=== PATIENT | male | born 2000 | race Caucasian/White ===

== ENCOUNTER 2020-09-02 13:45 | Emergency (ER) | payer SELFPAY ==
[~2020-09-02] VITALS: Ht 182.9 cm; Wt 113.4 kg
[2020-09-02 15:40] LABS: BILIRUBIN,URINE NEGATIVE (NEGATIVE); CLARITY,URINE CLEAR; COLOR,URINE YELLOW; GLUCOSE, URINE (UA) NEGATIVE (NEGATIVE); KETONES,URINE NEGATIVE (NEGATIVE); LEUKOCYTE ESTERASE ,URINE NEGATIVE (NEGATIVE); NITRITE,URINE NEGATIVE (NEGATIVE); PROTEIN,URINE NEGATIVE (NEGATIVE)
[2020-09-02 15:46] LABS: BACTERIA,URINE NEGATIVE /HPF
[2020-09-02 15:50] LABS: BASOPHILS % (AUTO) 1 % (0-10); EOSINOPHILS % (AUTO) 0 % (0-10); HEMATOCRIT 48 % (40-54); HEMOGLOBIN 17.6 g/dL (13.3-17.7); LYMPHOCYTES # (AUTO) 1.3 10^3/uL (1.0-4.0); LYMPHOCYTES % (AUTO) 25 % (12-44); MEAN CORPUSCULAR HEMOGLOBIN 35 pg (25-34); MEAN CORPUSCULAR HGB CONC 37 g/dL (32-36); MEAN CORPUSCULAR VOLUME 94 fL (80-99); MEAN PLATELET VOLUME 11.3 fL (9.0-12.2); MONOCYTES # (AUTO) 0.5 10^3/uL (0.0-1.0); MONOCYTES % (AUTO) 10 % (0-12); NEUTROPHILS # (AUTO) 3.4 10^3/uL (1.8-7.8); NEUTROPHILS % (AUTO) 64 % (42-75); PLATELET COUNT 154 10^3/uL (130-400); WHITE BLOOD COUNT 5.2 10^3/uL (4.3-11.0)
[2020-09-02 15:57] LABS: AMPHETAMINE SCREEN, URINE NEGATIVE (NEGATIVE); BARBITURATE SCREEN URINE NEGATIVE (NEGATIVE); BENZODIAZEPINES SCREEN URINE NEGATIVE (NEGATIVE); CANNABINOID SCREEN, URINE NEGATIVE (NEGATIVE); COCAINE SCREEN URINE NEGATIVE (NEGATIVE); METHADONE STAT NEGATIVE (NEGATIVE); METHAMPHETAMINE SCREEN URINE S NEGATIVE (NEGATIVE); OPIATE SCREEN URINE NEGATIVE (NEGATIVE); OXYCODONE STAT NEGATIVE (NEGATIVE); PROPOXYPHENE STAT NEGATIVE (NEGATIVE); TRICYCLIC ANTIDEPRESSANTS SCRE NEGATIVE (NEGATIVE)
[2020-09-02 16:05] LABS: ALBUMIN 3.9 GM/DL (3.2-4.5); CHLORIDE 99 MMOL/L (98-107); POTASSIUM 4.5 MMOL/L (3.6-5.0); SODIUM 136 MMOL/L (135-145)
[2020-09-02 16:06] LABS: CALCIUM 9.8 MG/DL (8.5-10.1)
[2020-09-02 16:07] LABS: GLUCOSE 127 MG/DL (70-105)
[2020-09-02 16:08] LABS: TOTAL PROTEIN 8.9 GM/DL (6.4-8.2)
--- NOTE | 2020-09-02 16:08 | ED General ---
General Chief Complaint: General Problems/Pain Stated Complaint: HEAD PRESSURE Nursing Triage Note: PT AMBULATORY TO TRIAGE ROOM WITH C/O DIZZINESS/COLD CHILLS/DIARRHEA/DECREASED APPETITE/FATIGUE/WEAKNESS/CONGESTION X5 DAYS. PT WAS EVALUATED AT [facility] YESTERDAY WHERE HE WAS SWABBED FOR COVID/FLU/STREP AND ALL WERE NEGATIVE. [facility] INFORMED HIM THAT HE HAS VIRAL SYNDROME AND TO INCREASE FLUID INTAKE. PT STATES HE'S AN ALCOHOLIC AND HAS EXPERIENCED W/D SYMPTOMS BEFORE. HE THOUGHT HE MIGHT BE GOING THROUGH W/D SO HE CONSUMED WINE IT ADMINISTRATIVE ASSISTANT IN ATTEMPT TO RELIEVE HIS SYMPTOMS. Nursing Sepsis Screen: No Definite Risk History of Present Illness Date Seen by Provider: Sep 02, 2020 Time Seen by Provider: 14:00 Initial Comments 19-year-old male reports with a myriad of symptoms related to a viral upper respiratory infection. He is also concerned because over the last year he began drinking alcohol, it is now several days a week and he is consuming larger amounts. He is wanting to discontinue drinking alcohol and has slowly cut back. He is open to seeing behavioral health at [facility] and joining . He [facility] 1 [facility] but he was reluctant to do that he is now reconsidering, however he started a new job and is on orientation. Timing/Duration: 2-3 Days Associated Systoms: Denies Symptoms Allergies and Home Medications Home Medications Hydroxyzine Pamoate 25 Mg Capsule, 25 MG PO Q8H Prescribed by: CR BELL on 09/02/20 1612 Patient Home Medication List Home Medication List Reviewed: Yes Review of Systems Review of Systems Constitutional: no symptoms reported, see HPI EENTM: see HPI, nose congestion Respiratory: see HPI, cough Gastrointestinal: no symptoms reported, see HPI All Other Systems Reviewed Negative Unless Noted: Yes Past Xjjpjim-Guqhlw-Axpzsu Hx Past Med/Social Hx: Reviewed Nursing Past Med/Soc Hx Patient Social History Alcohol Use: Regular Use Number of Drinks Today: 2 Alcohol Beverage of Choice: Other Smoking Status: Current Everyday Smoker Type Used: Electronic/Vapor Recent Infectious Disease Expo: No Recent Hopitalizations: No Seasonal Allergies Seasonal Allergies: No Past Medical History Surgeries: No Respiratory: No Cardiac: No Neurological: No Genitourinary: No Gastrointestinal: No Musculoskeletal: No Endocrine: No HEENT: No Cancer: No Psychosocial: Yes (ALCOHOLISM) Integumentary: No Physical Exam Vital Signs Vital Signs - First Documented 09/02/20 13:56 Temp 36.1 Pulse 100 Resp 18 B/P (MAP) 157/93 (114) Pulse Ox 98 O2 Delivery Room Air Capillary Refill : Less Than 3 Seconds Height, Weight, BMI Height: '" Weight: lbs. oz. kg; 33.00 BMI Method: General Appearance: No Apparent Distress, WD/WN Eyes: Bilateral Eye Normal Inspection, Bilateral Eye PERRL, Bilateral Eye EOMI HEENT: PERRL/EOMI, TMs Normal, Pharynx Normal, Moist Mucous Membranes; No Tonsillar Exudate, No Tonsillar Enlargement; Other (Purulent nasal drainage) Neck: Full Range of Motion, Normal Inspection, Non Tender, Supple Respiratory: Chest Non Tender, Lungs Clear, Normal Breath Sounds Cardiovascular: Regular Rate, Rhythm, No Murmur, Normal Peripheral Pulses Gastrointestinal: Normal Bowel Sounds, Non Tender, Soft Extremity: Normal Capillary Refill, Normal Inspection, Normal Range of Motion, Non Tender, No Calf Tenderness, No Pedal Edema Neurologic/Psychiatric: Alert, Oriented x3, No Motor/Sensory Deficits, Normal Mood/Affect Skin: Normal Color, Warm/Dry Progress/Results/Core Measures Suspected Sepsis Recent Fever Within 48 Hours: No Infection Criteria Present: None New/Unexplained Altered Menta: No Sepsis Screen: No Definite Risk SIRS Temperature: Pulse: 100 Respiratory Rate: 18 Laboratory Tests 09/02/20 15:40: White Blood Count 5.2 Blood Pressure 157 /93 Mean: 114 Laboratory Tests 09/02/20 15:40: Creatinine 0.93, Platelet Count 154, Total Bilirubin 1.4H Results/Orders Lab Results Laboratory Tests Test 09/02/20 15:31 09/02/20 15:40 Range/Units Urine Color YELLOW Urine Clarity CLEAR Urine pH 7.0 5-9 Urine Specific [place] <=1.005 1.016-1.022 Urine Protein NEGATIVE NEGATIVE Urine Glucose (UA) NEGATIVE NEGATIVE Urine Ketones NEGATIVE NEGATIVE Urine Nitrite NEGATIVE NEGATIVE Urine Bilirubin NEGATIVE NEGATIVE Urine Urobilinogen 0.2 < = 1.0 MG/DL Urine Leukocyte Esterase NEGATIVE NEGATIVE Urine RBC (Auto) NEGATIVE NEGATIVE Urine RBC NONE /HPF Urine WBC NONE /HPF Urine Crystals NONE /LPF Urine Bacteria NEGATIVE /HPF Urine Casts NONE /LPF Urine Mucus NEGATIVE /LPF Urine Culture Indicated NO Urine Opiates Screen NEGATIVE NEGATIVE Urine Oxycodone Screen NEGATIVE NEGATIVE Urine Methadone Screen NEGATIVE NEGATIVE Urine Propoxyphene Screen NEGATIVE NEGATIVE Urine Barbiturates Screen NEGATIVE NEGATIVE Ur Tricyclic Antidepressants Screen NEGATIVE NEGATIVE Urine Phencyclidine Screen NEGATIVE NEGATIVE Urine Amphetamines Screen NEGATIVE NEGATIVE Urine Methamphetamines Screen NEGATIVE NEGATIVE Urine Benzodiazepines Screen NEGATIVE NEGATIVE Urine Cocaine Screen NEGATIVE NEGATIVE Urine Cannabinoids Screen NEGATIVE NEGATIVE White Blood Count 5.2 4.3-11.0 10^3/uL Red Blood Count 5.09 4.30-5.52 10^6/uL Hemoglobin 17.6 13.3-17.7 g/dL Hematocrit 48 40-54 % Mean Corpuscular Volume 94 80-99 fL Mean Corpuscular Hemoglobin 35 H 25-34 pg Mean Corpuscular Hemoglobin Concent 37 H 32-36 g/dL Red Cell Distribution Width 12.6 10.0-14.5 % Platelet Count 154 130-400 10^3/uL Mean Platelet Volume 11.3 9.0-12.2 fL Immature Granulocyte % (Auto) 1 % Neutrophils (%) (Auto) 64 42-75 % Lymphocytes (%) (Auto) 25 12-44 % Monocytes (%) (Auto) 10 0-12 % Eosinophils (%) (Auto) 0 0-10 % Basophils (%) (Auto) 1 0-10 % Neutrophils # (Auto) 3.4 1.8-7.8 10^3/uL Lymphocytes # (Auto) 1.3 1.0-4.0 10^3/uL Monocytes # (Auto) 0.5 0.0-1.0 10^3/uL Eosinophils # (Auto) 0.0 0.0-0.3 10^3/uL Basophils # (Auto) 0.0 0.0-0.1 10^3/uL Immature Granulocyte # (Auto) 0.0 0.0-0.1 10^3/uL Sodium Level 136 135-145 MMOL/L Potassium Level 4.5 3.6-5.0 MMOL/L Chloride Level 99 98-107 MMOL/L Carbon Dioxide Level 19 L 21-32 MMOL/L Anion Gap 18 H 5-14 MMOL/L Blood Urea Nitrogen 7 7-18 MG/DL Creatinine 0.93 0.60-1.30 MG/DL Estimat Glomerular Filtration Rate > 60 BUN/Creatinine Ratio 8 Glucose Level 127 H 70-105 MG/DL Calcium Level 9.8 8.5-10.1 MG/DL Corrected Calcium 9.9 8.5-10.1 MG/DL Total Bilirubin 1.4 H 0.1-1.0 MG/DL Aspartate Amino Transf (AST/SGOT) 498 H 5-34 U/L Alanine Aminotransferase (ALT/SGPT) 602 H 0-55 U/L Alkaline Phosphatase 148 H 40-136 U/L Total Protein 8.9 H 6.4-8.2 GM/DL Albumin 3.9 3.2-4.5 GM/DL My Orders Orders - RAYCR JACOBS Cbc With Automated Diff (09/02/20 15:26) Comprehensive Metabolic Panel (09/02/20 15:26) Drug Screen Stat (Urine) (09/02/20 15:26) Ua Culture If Indicated (09/02/20 15:26) Vital Signs/I&O 09/02/20 09/02/20 13:56 16:26 Temp 36.1 Pulse 100 88 Resp 18 18 B/P (MAP) 157/93 (114) 132/82 (114) Pulse Ox 98 98 O2 Delivery Room Air Capillary Refill : Less Than 3 Seconds Blood Pressure Mean: 114 Progress Note : Time: 14:00 Progress Note Patient seen and evaluated. Discussed at length options for outpatient alcohol detox versus voluntary inpatient. 1500 discussed labs with patient especially elevation in liver enzymes and need to stop the alcohol because of the damage it is causing. 1600 discharge instructions and return precautions reviewed with the patient. Departure Impression Primary Impression: Alcohol abuse Disposition: 01 HOME, SELF-CARE Condition: Improved Departure-Patient Inst. Decision time for Depature: 16:00 Referrals: NO,LOCAL PHYSICIAN (PCP/Family) Primary Care Physician Patient Instructions: Alcohol Abuse and Alcoholism (DC) Add. Discharge Instructions: Increase water intake, 16 ounces every 2 hours while awake. Take the Vistaril as prescribed for anxiety. [facility] and attend AA meetings. See Primary care Provider at [facility] for repeat labs in 2-3 weeks (elevated AST/ALT) Continue on the path of not drinking, each day is a step in the correct direction. If this process is not working consider inpatient therapy. Return to the emergency department for new, urgent healthcare needs. All discharge instructions reviewed with patient and/or family. Voiced understanding. Scripts Hydroxyzine Pamoate (Vistaril) 25 Mg Capsule 25 MG PO Q8H, #20 CAP 0 Refills Prov: CR BELL 09/02/20 CR BELL Sep 02, 2020 16:08
[2020-09-02 16:09] LABS: BILIRUBIN,TOTAL 1.4 MG/DL (0.1-1.0); CARBON DIOXIDE 19 MMOL/L (21-32)
[2020-09-02 16:11] LABS: ALKALINE PHOSPHATASE 148 U/L (40-136); CREATININE SERUM 0.93 MG/DL (0.60-1.30); GFR ESTIMATED > 60
[2020-09-02 16:12] LABS: BUN/CREATININE RATIO 8
[2020-09-02] MEDS ORDERED: HYDR25CA PO (16:12)
[2020-09-02 16:14] LABS: ALANINE AMINOTRANSFERASE 602 U/L (0-55)
[2020-09-02 16:26] VITALS: BP 132/82
== END 2020-09-02 16:26 | disposition home or self-care (01) ==
LOC: ER 13:48
DX: F10.20 Alcohol dependence, uncomplicated (principal); F17.290 Nicotine dependence, other tobacco product, uncomplicated
CPT/HCPCS: 36415; 80053; 80306; 81000; 85025; 99282

== ENCOUNTER 2022-10-09 08:54 | Inpatient (IN) | payer SELFPAY ==
[~2022-10-09] VITALS: Ht 182.9 cm; Wt 116.9 kg
[~2022-10-09 08:54] MED LIST: HYDR25CA PO
[2022-10-09] MEDS ORDERED: LORazepam INJ 2 MG/ML (ATIVAN) VIAL ONE (09:15)
[2022-10-09] MEDS ORDERED: NS IV 1000 ML 1,000 ML ONE (09:16)
[2022-10-09] MEDS ORDERED: PANTOPRAZOLE 40 MG (PROTONIX) VIAL ONE (09:22)
[2022-10-09] MEDS ORDERED: ONDANSETRON 4 MG/2 ML (SDV) Z0FRAN ONE (09:22)
[2022-10-09 09:29] LABS: BASOPHILS # (AUTO) 0.1 10^3/uL (0.0-0.1); BASOPHILS % (AUTO) 1 % (0-10); EOSINOPHILS # (AUTO) 0.1 10^3/uL (0.0-0.3); EOSINOPHILS % (AUTO) 1 % (0-10); HEMATOCRIT 49 % (40-54); HEMOGLOBIN 17.8 g/dL (13.3-17.7); LYMPHOCYTES # (AUTO) 2.8 10^3/uL (1.0-4.0); LYMPHOCYTES % (AUTO) 32 % (12-44); MEAN CORPUSCULAR HEMOGLOBIN 33 pg (25-34); MEAN CORPUSCULAR HGB CONC 36 g/dL (32-36); MEAN CORPUSCULAR VOLUME 91 fL (80-99); MEAN PLATELET VOLUME 10.7 fL (9.0-12.2); MONOCYTES # (AUTO) 0.5 10^3/uL (0.0-1.0); MONOCYTES % (AUTO) 6 % (0-12); NEUTROPHILS # (AUTO) 5.2 10^3/uL (1.8-7.8); NEUTROPHILS % (AUTO) 60 % (42-75); PLATELET COUNT 226 10^3/uL (130-400); WHITE BLOOD COUNT 8.7 10^3/uL (4.3-11.0)
[2022-10-09 09:30] LABS: ALBUMIN 4.5 GM/DL (3.2-4.5)
[2022-10-09] MEDS ORDERED: LACTATED RINGERS 1,000 ML IV ONE (09:30)
[2022-10-09] MEDS ORDERED: ONDANSETRON 4 MG/2 ML (SDV) Z0FRAN IVP ONE (09:30)
[2022-10-09] MEDS ORDERED: PANTOPRAZOLE 40 MG (PROTONIX) VIAL IV ONE (09:30)
[2022-10-09 09:31] LABS: POTASSIUM 3.2 MMOL/L (3.6-5.0)
[2022-10-09 09:32] LABS: CALCIUM 10.1 MG/DL (8.5-10.1)
[2022-10-09 09:33] LABS: TOTAL PROTEIN 8.1 GM/DL (6.4-8.2)
[2022-10-09 09:35] LABS: BILIRUBIN,TOTAL 1.3 MG/DL (0.1-1.0)
[2022-10-09 09:40] LABS: MAGNESIUM 1.8 MG/DL (1.6-2.4)
[2022-10-09 10:00] LABS: INR 0.8 (0.8-1.4); PROTHROMBIN TIME PATIENT 11.8 SEC (12.2-14.7)
--- NOTE | 2022-10-09 10:08 | ED General ---
General Chief Complaint: Abdominal/GI Problems Stated Complaint: VOMITING BLOOD/ABD PAIN Nursing Triage Note: PT AMB TO RM 4 PT CO OF VOMITING STREAKS OF BLOOD THIS AM. PT STATES HAS BEEN VOMITING FOR SEVERAL DAYS. PT STATES DRINKS ETOH Q DAY FOR A LONG TIME. DENIES ABD PAIN. PT IS VERY TACHY HR 160'S ,DR TO ROOM. PT VERY ANXIOUS Source of Information: Patient Exam Limitations: No Limitations History of Present Illness Date Seen by Provider: Oct 09, 2022 Time Seen by Provider: 09:10 Initial Comments This 22-year-old young man presents to the emergency room with primary complaint of vomiting this morning. He noted streaks of blood in his emesis. He reports being a daily alcohol consumer and has been drinking larger quantities of alcohol in recent weeks. His last alcohol consumption was this morning when he drank a shot before he tried to go to work. He did vomit after that. Patient reports he will vomit once or twice a day for a few days every few weeks when his alcohol consumption is higher. He denies any pain at this time. He is noted to be markedly tachycardic on arrival with a heart rate in the 150s. This appears to be sinus tachycardia on the monitor and does not respond to Valsalva maneuver. Patient comments that he has been thinking for the past week that he needs to engage in a alcohol rehab program. He has good insight into his alcohol dependence. His typical alcohol consumption is 4-5 "shooters" and "some beers" in the evenings. When he drinks more heavily, he drinks up to fifth of hard liquor. Allergies and Home Medications Allergies Coded Allergies: No Known Drug Allergies (Unverified , 10/09/22) Patient Home Medication List Home Medication List Reviewed: Yes Hydroxyzine Pamoate (Vistaril) 25 Mg Capsule, 25 MG PO Q8H Prescribed by: CR BELL on 09/02/20 1612 Review of Systems Review of Systems Constitutional: no symptoms reported EENTM: no symptoms reported Respiratory: no symptoms reported Cardiovascular: see HPI Gastrointestinal: see HPI Genitourinary: no symptoms reported Musculoskeletal: no symptoms reported Skin: no symptoms reported Psychiatric/Neurological: See HPI Hematologic/Lymphatic: No Symptoms Reported Immunological/Allergic: no symptoms reported Past Xyfksyi-Zowxlg-Pultuq Hx Patient Social History Tobacco Use?: No Smokeless Tobacco Frequency: Current Everyday User Use of E-Cig and/or Vaping dev: Yes Substance use?: No Alcohol Use?: Yes Alcohol type: Hard Liquor Alcohol Frequency: Daily Pt feels they are or have been: No Seasonal Allergies Seasonal Allergies: No Past Medical History Surgery/Hospitalization HX: ETOH USE Surgeries: No Respiratory: No Cardiac: No Neurological: No Genitourinary: No Gastrointestinal: No Musculoskeletal: No Endocrine: No HEENT: No Cancer: No Psychosocial: Yes (ALCOHOLISM) Anxiety, Depression Integumentary: No Physical Exam Vital Signs Vital Signs - First Documented 10/09/22 09:00 Temp 37.1 Pulse 165 Resp 18 B/P (MAP) 184/95 (124) Pulse Ox 98 Capillary Refill : Less Than 3 Seconds Height, Weight, BMI Height: '" Weight: lbs. oz. kg; 35.00 BMI Method: General Appearance: WD/WN, Anxious, Obese HEENT: PERRL/EOMI, Normal ENT Inspection, Other (Mucous membranes) Neck: Normal Inspection Respiratory: Lungs Clear, Normal Breath Sounds, No Accessory Muscle Use Cardiovascular: No Edema, No Murmur, Tachycardia (Extreme sinus tachycardia) Gastrointestinal: Normal Bowel Sounds, Non Tender, Soft; No Distended Extremity: Normal Inspection, No Pedal Edema Neurologic/Psychiatric: Alert, Oriented x3, No Motor/Sensory Deficits, machine helper II- XII Norm as Tested, Other (Mildly anxious) Skin: Normal Color, Warm/Dry Progress/Results/Core Measures Suspected Sepsis SIRS Temperature: Pulse: 165 Respiratory Rate: 18 Laboratory Tests 10/09/22 09:10: White Blood Count 8.7 Blood Pressure 184 /95 Mean: 124 Laboratory Tests 10/09/22 09:10: Creatinine 1.00, INR Comment 0.8, Platelet Count 226, Total Bilirubin 1.3H Results/Orders Lab Results Laboratory Tests Test 10/09/22 09:10 10/09/22 09:58 Range/Units White Blood Count 8.7 4.3-11.0 10^3/uL Red Blood Count 5.44 4.30-5.52 10^6/uL Hemoglobin 17.8 H 13.3-17.7 g/dL Hematocrit 49 40-54 % Mean Corpuscular Volume 91 80-99 fL Mean Corpuscular Hemoglobin 33 25-34 pg Mean Corpuscular Hemoglobin Concent 36 32-36 g/dL Red Cell Distribution Width 11.9 10.0-14.5 % Platelet Count 226 130-400 10^3/uL Mean Platelet Volume 10.7 9.0-12.2 fL Immature Granulocyte % (Auto) 0 % Neutrophils (%) (Auto) 60 42-75 % Lymphocytes (%) (Auto) 32 12-44 % Monocytes (%) (Auto) 6 0-12 % Eosinophils (%) (Auto) 1 0-10 % Basophils (%) (Auto) 1 0-10 % Neutrophils # (Auto) 5.2 1.8-7.8 10^3/uL Lymphocytes # (Auto) 2.8 1.0-4.0 10^3/uL Monocytes # (Auto) 0.5 0.0-1.0 10^3/uL Eosinophils # (Auto) 0.1 0.0-0.3 10^3/uL Basophils # (Auto) 0.1 0.0-0.1 10^3/uL Immature Granulocyte # (Auto) 0.0 0.0-0.1 10^3/uL Prothrombin Time 11.8 L 12.2-14.7 SEC INR Comment 0.8 0.8-1.4 Activated Partial Thromboplast Time 25 24-35 SEC Sodium Level 135 135-145 MMOL/L Potassium Level 3.2 L 3.6-5.0 MMOL/L Chloride Level 96 L 98-107 MMOL/L Carbon Dioxide Level 12 L 21-32 MMOL/L Anion Gap 27 H 5-14 MMOL/L Blood Urea Nitrogen 4 L 7-18 MG/DL Creatinine 1.00 0.60-1.30 MG/DL Estimat Glomerular Filtration Rate 108 BUN/Creatinine Ratio 4 Glucose Level 172 H 70-105 MG/DL Calcium Level 10.1 8.5-10.1 MG/DL Corrected Calcium 9.7 8.5-10.1 MG/DL Magnesium Level 1.8 1.6-2.4 MG/DL Total Bilirubin 1.3 H 0.1-1.0 MG/DL Aspartate Amino Transf (AST/SGOT) 576 H 5-34 U/L Alanine Aminotransferase (ALT/SGPT) 373 H 0-55 U/L Alkaline Phosphatase 112 40-136 U/L Total Protein 8.1 6.4-8.2 GM/DL Albumin 4.5 3.2-4.5 GM/DL Lipase 39 8-78 U/L Serum Alcohol 16 H <10 MG/DL Urine Color ORANGE H Urine Clarity SL CLOUDY Urine pH 5.5 5-9 Urine Specific [place] 1.030 H 1.016-1.022 Urine Protein 3+ H NEGATIVE Urine Glucose (UA) NEGATIVE NEGATIVE Urine Ketones NEGATIVE NEGATIVE Urine Nitrite NEGATIVE NEGATIVE Urine Bilirubin 1+ H NEGATIVE Urine Urobilinogen 0.2 < = 1.0 MG/DL Urine Leukocyte Esterase NEGATIVE NEGATIVE Urine RBC (Auto) NEGATIVE NEGATIVE Urine RBC NONE /HPF Urine WBC 2-5 /HPF Urine Squamous Epithelial Cells NONE /HPF Urine Crystals PRESENT H /LPF Urine Amorphous Sediment FEW SHERITA URATES H /LPF Urine Bacteria NEGATIVE /HPF Urine Casts PRESENT /LPF Urine Hyaline Casts 25-50 H /LPF Urine Granular Casts 25-50 H /LPF Urine Mucus NEGATIVE /LPF Urine Culture Indicated NO Urine Opiates Screen NEGATIVE NEGATIVE Urine Oxycodone Screen NEGATIVE NEGATIVE Urine Methadone Screen NEGATIVE NEGATIVE Urine Propoxyphene Screen NEGATIVE NEGATIVE Urine Barbiturates Screen NEGATIVE NEGATIVE Ur Tricyclic Antidepressants Screen NEGATIVE NEGATIVE Urine Phencyclidine Screen NEGATIVE NEGATIVE Urine Amphetamines Screen NEGATIVE NEGATIVE Urine Methamphetamines Screen NEGATIVE NEGATIVE Urine Benzodiazepines Screen NEGATIVE NEGATIVE Urine Cocaine Screen NEGATIVE NEGATIVE Urine Cannabinoids Screen NEGATIVE NEGATIVE My Orders Orders - ELLIOTT CISNEROS MD Ekg Tracing (10/09/22 09:09) Monitor-Rhythm Ecg Trace Only (10/09/22 09:09) Lorazepam Injection (Ativan Injection) (10/09/22 09:15) Ns Iv 1000 Ml (Sodium Chloride 0.9%) (10/09/22 09:16) Ondansetron Injection (Zofran Injectio (10/09/22 09:30) Pantoprazole Injection (Protonix Injecti (10/09/22 09:30) Ed Iv/Invasive Line Start (10/09/22 09:20) Lactated Ringers (Lr 1000 Ml Iv Solution (10/09/22 09:30) Cbc With Automated Diff (10/09/22 09:20) Comprehensive Metabolic Panel (10/09/22 09:20) Lipase (10/09/22 09:20) Magnesium (10/09/22 09:20) Ondansetron Injection (Zofran Injectio (10/09/22 09:22) Pantoprazole Injection (Protonix Injecti (10/09/22 09:22) Alcohol (10/09/22 09:48) Drug Screen Stat (Urine) (10/09/22 09:48) Protime With Inr (10/09/22 09:48) Partial Thromboplastin Time (10/09/22 09:48) Ua Culture If Indicated (10/09/22 09:48) Hepatitis Panel Acute (10/09/22 09:49) Lorazepam Injection (Ativan Injection) (10/09/22 11:15) Ed Admission (Communication) (10/09/22 11:21) Potassium Chloride (Tablet) (Klor Con Ta (10/09/22 11:30) Lorazepam Injection (Ativan Injection) (10/09/22 11:45) Medications Given in ED Current Medications Medications Dose Ordered Sig/Myrtle Route Start Time Stop Time Status Last Admin Dose Admin Lactated Ringer's 1,000 ml @ 0 mls/hr Q0M ONCE IV 10/09/22 09:30 10/09/22 09:31 DC 10/09/22 10:01 1,000 MLS/HR Lorazepam 1 mg ONCE ONCE IVP 10/09/22 11:45 10/09/22 11:46 DC 10/09/22 11:37 1 MG Lorazepam 2 mg STK-MED ONCE .ROUTE 10/09/22 09:15 10/09/22 09:18 DC 10/09/22 09:19 1 MG Ondansetron HCl 4 mg ONCE ONCE IVP 10/09/22 09:30 10/09/22 09:31 DC 10/09/22 09:23 4 MG Pantoprazole 80 mg ONCE ONCE IV 10/09/22 09:30 10/09/22 09:31 DC 10/09/22 09:25 80 MG Potassium Chloride 20 meq ONCE ONCE PO 10/09/22 11:30 10/09/22 11:31 DC 10/09/22 11:33 20 MEQ Sodium Chloride 1,000 ml @ ud STK-MED ONCE .ROUTE 10/09/22 09:16 10/09/22 09:18 DC 10/09/22 09:19 1,000 MLS/HR Vital Signs/I&O 10/09/22 10/09/22 09:00 11:48 Temp 37.1 Pulse 165 123 Resp 18 16 B/P (MAP) 184/95 (124) 157/102 Pulse Ox 98 97 Capillary Refill : Less Than 3 Seconds Blood Pressure Mean: 124 Progress Note : Progress Note Patient was interviewed and examined shortly after arrival when I was called into the room by nursing staff at 0910. He was noted to have narrow complex tachycardia with a rate in the 150s on the cardiac monitor technician. Valsalva maneuver did not alter his rate or rhythm. Patient denied any pain at that time. He was treated with a liter of IV fluid and Ativan. His tachycardia was thought to be multifactorial with contributing factors being hypovolemia and alcohol withdrawal. He responded well to IV fluids and Ativan. His heart rate improved to the 110s with these treatments. He was also treated with Protonix 80 mg IV and Zofran 4 mg IV. Hypokalemia was treated with oral potassium. Labs were reviewed and interpreted in their entirety. CBC demonstrated an elevated hemoglobin of 17.8, likely representing hemoconcentration. CMP revealed multiple abnormalities including hypokalemia with potassium of 3.2, hyperglycemia with glucose of 172, hyperbilirubinemia with bilirubin of 1.3, acute hepatitis with AST of 576 and ALT of 373. Urinalysis demonstrated casts. Toxicology screen revealed a low alcohol level of 16. Urine toxicology was negative. Lipase was normal. Patient was encouraged to be admitted for observation and treatment of withdrawal. Patient is agreeable and expresses a desire to pursue alcohol dependence treatment. I discussed the case with Dr. Mejia, hospitalist, who accepts admission. Acute hepatitis panel was pending at the time of admission. Departure Communication (Admissions) Time/Spoke to Admitting Phy: 11:20 Dr. Mejia Impression Primary Impression: Acute alcoholic hepatitis Additional Impressions: Alcohol withdrawal Qualified Codes: F10.939 - Alcohol use, unspecified with withdrawal, unspecified Hematemesis Qualified Codes: K92.0 - Hematemesis Alcohol dependence Qualified Codes: F10.239 - Alcohol dependence with withdrawal, unspecified Hypokalemia Disposition: ADMITTED INPATIENT Condition: Stable Admissions Decision to Admit Reason: Admit from ER (General) Decision to Admit/Date: Oct 09, 2022 Time/Decision to Admit Time: 11:20 Departure-Patient Inst. Referrals: NO,LOCAL PHYSICIAN (PCP/Family) Primary Care Physician ELLIOTT CISNEROS MD Oct 09, 2022 10:08
[2022-10-09 10:17] LABS: CLARITY,URINE SL CLOUDY; COLOR,URINE ORANGE; GLUCOSE, URINE (UA) NEGATIVE (NEGATIVE); KETONES,URINE NEGATIVE (NEGATIVE); NITRITE,URINE NEGATIVE (NEGATIVE); PH,URINE 5.5 (5-9); PROTEIN,URINE 3+ (NEGATIVE)
[2022-10-09 10:18] LABS: BILIRUBIN,URINE 1+ (NEGATIVE); LEUKOCYTE ESTERASE ,URINE NEGATIVE (NEGATIVE)
[2022-10-09 10:21] LABS: AMORPHOUS SEDIMENT,UR FEW AMOR URATES /LPF; BACTERIA,URINE NEGATIVE /HPF
[2022-10-09 10:22] LABS: GRANULAR CASTS,URINE 25-50 /LPF; HYALINE CASTS, URINE 25-50 /LPF
[2022-10-09 10:29] LABS: AMPHETAMINE SCREEN, URINE NEGATIVE (NEGATIVE); BARBITURATE SCREEN URINE NEGATIVE (NEGATIVE); BENZODIAZEPINES SCREEN URINE NEGATIVE (NEGATIVE); CANNABINOID SCREEN, URINE NEGATIVE (NEGATIVE); COCAINE SCREEN URINE NEGATIVE (NEGATIVE); METHADONE STAT NEGATIVE (NEGATIVE); OPIATE SCREEN URINE NEGATIVE (NEGATIVE); OXYCODONE STAT NEGATIVE (NEGATIVE); PROPOXYPHENE STAT NEGATIVE (NEGATIVE); TRICYCLIC ANTIDEPRESSANTS SCRE NEGATIVE (NEGATIVE)
[2022-10-09] MEDS ORDERED: LORazepam INJ 2 MG/ML (ATIVAN) VIAL IVP ONE ×2 (11:15→11:45)
[2022-10-09] MEDS ORDERED: POTASSIUM CHLORIDE 10 MEQ TABLET PO ONE (11:30)
[2022-10-09] MEDS ORDERED: MILK OF MAGNESIA 400 MG/5 ML 30 ML UDC PO PRN (12:00)
[2022-10-09] MEDS ORDERED: diphenhydrAMINE 25 MG TABLET PO PRN (12:00)
[2022-10-09] MEDS ORDERED: polyethylene glycoL POWDER 17 GM (MIRALAX) PACK PO PRN (12:00)
[2022-10-09] MEDS ORDERED: diphenhydrAMINE INJ 50 MG/ML VIAL IVP PRN (12:00)
[2022-10-09] MEDS ORDERED: ACETAMINOPHEN 325 MG TABLET PO PRN (12:00)
[2022-10-09] MEDS ORDERED: D5 1/2 NS 1,000 ML IV 1,000 ML IV PRN (12:00)
[2022-10-09] MEDS ORDERED: CALCIUM CARBONATE 500 MG CHEW TABLET PO PRN (12:00)
[2022-10-09] MEDS ORDERED: BISACODYL 10 MG SUPPOSITORY PR PRN (12:00)
[2022-10-09] MEDS ORDERED: ONDANSETRON 4 MG/2 ML (SDV) Z0FRAN IV PRN (12:00)
[2022-10-09] MEDS ORDERED: 1/2 NS IV SOLUTION 1000 ML 1,000 ML IV PRN (12:00)
[2022-10-09] MEDS ORDERED: ONDANSETRON 4 MG (ZOFRAN) ORAL DISSOLVE TAB PO PRN (12:00)
[2022-10-09] MEDS ORDERED: ANTACID SUSP 30 ML UDC (MYLANTA) PO PRN ×2 (12:00)
[2022-10-09] MEDS ORDERED: MELATONIN 3 MG TABLET PO PRN (12:00)
[2022-10-09] MEDS ORDERED: LACTULOSE SYRUP 10GM/15ML 30ML UDC PO PRN (12:00)
[2022-10-09] MEDS ORDERED: LORazepam INJ 2 MG/ML (ATIVAN) VIAL IM/IV PRN (12:00)
--- NOTE | 2022-10-09 12:15 | Tele-ICU Consult ---
History of Present Illness History of Present Illness Date Seen by Provider: Oct 09, 2022 Time Seen by Provider: 12:10 History of Present Illness [facility] critical care consult 22 yo M came to ED with cc of vomiting blood Heavy user of EtOH, In ED HR 165 BP 184/95, Hb 17.8, plt 226, T Bili 1.3, INR 0.8, INR 11.8, PTT 25, potassium 3.2, HCO3 12 with AG 27, AST 576, ALT 373, Magnesium 1.8, lipase 39, UDS negative, EtOH level 26 In ED given IV Ativan, IVF, IV potassium Pt probably withdrawing from EtOH with very high BP 180/130, P 100 Allergies and Home Medications Allergies Coded Allergies: No Known Drug Allergies (Unverified , 10/09/22) Home Medications Hydroxyzine Pamoate 25 Mg Capsule, 25 MG PO Q8H Prescribed by: CR BELL on 09/02/20 1612 Past Medical/Social/Family Hx Patient Social History Tobacco Use?: No Smokeless type used: Chew Smokeless Tobacco Frequency: Current Everyday User Use of E-Cig and/or Vaping dev: Yes Substance use?: No Alcohol Use?: Yes Alcohol type: Hard Liquor Alcohol Frequency: Daily Pt stated abuse/neglect: No Current Status Advance Directives: No Communicates: Verbally Primary Language: Gabonese Preferred Spoken Language: Gabonese Is interpretation needed?: No Implanted or Applied Medical D: None Review of Systems Constitutional: see HPI Focused Exam Height, Weight, BMI Height: '" Weight: lbs. oz. kg; 35.00 BMI Method: Exam Exam Patient acknowledged, consented, and participated in this virtual visit which was conducted using real time audio/video Vital Signs Date Time Temp Pulse Resp B/P (MAP) Pulse Ox O2 Delivery O2 Flow Rate FiO2 10/09/22 11:48 123 16 157/102 97 10/09/22 09:00 37.1 165 18 184/95 (124) 98 Height & Weight Height: '" Weight: lbs. oz. kg; 35.00 BMI Method: General Appearance: Severe Distress Respiratory: Decreased Breath Sounds Cardiovascular: Tachycardia Capillary Refill: Less Than 3 Seconds Gastrointestinal: normal bowel sounds, non tender, soft Extremity: Normal Capillary Refill Results Lab Laboratory Tests 10/09/22 09:10 Assessment/Plan Assessment/Plan UGI bleed, dehydration, EtOH hepatitis, Possible EtOH withdrawal Has met acidosis, would get VBG and serum lacate Thimaine, folic acid, Continue IV PPI BP not controlled, will give 20 mg IVP labetolol Spoke with it risk and assurance manager: Critically Ill Patient Time spent with patient (mins): 25 TASIA LA MD Oct 09, 2022 12:15
[2022-10-09] MEDS: LACTATED RINGERS 1,000 ML IV SCH ×2 (13:51→18:40)
[2022-10-09] MEDS: THIAMINE INJECTION 100 MG, FOLIC ACID INJECTION 1 MG, MAGNESIUM SULFATE 2 GM, VITAMIN M... IV SCH ×5 (14:51)
[2022-10-09 15:59] VITALS: BP 178/113
[2022-10-09] MEDS ORDERED: LABETALOL 5 mg/ml 4 ML SINGLE DOSE SYRINGE IV ONE (16:15)
[2022-10-09] MEDS: PANTOPRAZOLE 40 MG (PROTONIX) VIAL IV SCH (20:46)
[2022-10-09] MEDS: DOCUSATE SODIUM 100 MG CAPSULE PO SCH (20:46)
[2022-10-09] MEDS: SENNOSIDES 8.6 MG (SENOKOT) TAB PO SCH (20:46)
[2022-10-09] MEDS: MAGNESIUM OXIDE (MAG-OX)400 MG TAB PO SCH (20:46)
--- NOTE | 2022-10-09 21:34 | History & Physical-Hospitalist ---
History of Present Illness HPI/Chief Complaint Nathan Osman Jr is a 22 year old male who presented with vomiting. He had some streaks of blood in his emesis. He is a daily drinker for about the past two years. He drinks beer, hard liquor, or whatever he has. He drinks up to a fifth of liquor per day. He has had some mild withdrawal symptoms in the past. He denies any hospital admissions due to alcohol. He has no chronic medical problems. He wants help quitting drinking. Source: patient Exam Limitations: no limitations Date Seen 10/09/22 Time Seen by a Provider: 17:45 Attending Physician No,Local Physician PCP Admitting Physician: Marla Horne MD Attending Physician: Marla Horne MD Referring Physician Date of Admission Oct 09, 2022 at 11:53 Home Medications & Allergies Home Medications Reviewed patient Home Medication Reconciliation performed by pharmacy medication reconciliations premises technician and/or nursing. Patients Allergies have been reviewed. Allergies Allergies Coded Allergies No Known Drug Allergies (Unverified10/09/22) Past [id number]-Pkzcmw Hx Patient Social History Tobacco Use?: No Smokeless type used: Chew Smokeless Tobacco Frequency: Current Everyday User Use of E-Cig and/or Vaping dev: Yes E-Cig or Vaping type used: Nicotine Use of E-Cig and/or Vaping Andreas: Current Everyday User, Light User Substance use?: No Substance type: Caffeine Substance frequency: Rarely Alcohol Use?: Yes Alcohol type: Beer, Hard Liquor Alcohol Frequency: Daily Pt feels they are or have been: No Seasonal Allergies Seasonal Allergies: No Current Status Advance Directives: No Communicates: Verbally Primary Language: Latvian Preferred Spoken Language: Latvian Is interpretation needed?: No Implanted or Applied Medical D: None Past Medical History Anxiety, Depression Family Medical History Hypertension Review of Systems Constitutional: no symptoms reported Respiratory: no symptoms reported Cardiovascular: no symptoms reported Gastrointestinal: vomiting Physical Exam Physical Exam Vital Signs Vital Signs - First Documented 10/09/22 10/09/22 09:00 12:15 Temp 37.1 Pulse 165 Resp 18 B/P (MAP) 184/95 (124) Pulse Ox 98 O2 Delivery Room Air Capillary Refill : Less Than 3 Seconds Height, Weight, BMI Height: '" Weight: lbs. oz. kg; 35.18 BMI Method: General Appearance: No Apparent Distress, Obese Neck: Normal Inspection, Supple Respiratory: Lungs Clear, Normal Breath Sounds, No Respiratory Distress Cardiovascular: Regular Rate, Rhythm, No Murmur Gastrointestinal: Normal Bowel Sounds, Soft Extremity: Normal Inspection, No Pedal Edema Neurologic/Psychiatric: Alert, Normal Mood/Affect Skin: Normal Color, Warm/Dry Results Results/Procedures Labs Laboratory Tests 10/09/22 09:10 10/10/22 04:34 Patient resulted labs reviewed. Imaging: Reviewed Imaging Report Assessment/Plan Admission Diagnosis Alcohol withdrawal Admission Status: Inpatient Order (span 2 midnights) Reason for Inpatient Admission: Alcoholic hepatitis Assessment and Plan Alcohol dependence Alcohol withdrawal Acute alcoholic hepatitis [facility] protocol Ativan as needed IV fluids Consult social work HTN Likely related to withdrawal Reports family history of HTN Diagnosis/Problems Diagnosis/Problems (1) Alcohol dependence Status: Acute Qualifiers: Substance use status: in withdrawal Complication of substance-induced condition: with unspecified complication Qualified Codes: F10.239 - Alcohol dependence with withdrawal, unspecified (2) Alcohol withdrawal Status: Acute Qualifiers: Complication of substance-induced condition: with unspecified complication Qualified Codes: F10.939 - Alcohol use, unspecified with withdrawal, unspecified (3) Acute alcoholic hepatitis Status: Acute (4) HTN (hypertension) Status: Acute MARLA HORNE MD Oct 09, 2022 21:34
[2022-10-10 04:47] LABS: BASOPHILS % (AUTO) 1 % (0-10); EOSINOPHILS # (AUTO) 0.2 10^3/uL (0.0-0.3); EOSINOPHILS % (AUTO) 3 % (0-10); HEMATOCRIT 40 % (40-54); HEMOGLOBIN 14.1 g/dL (13.3-17.7); LYMPHOCYTES # (AUTO) 1.9 10^3/uL (1.0-4.0); LYMPHOCYTES % (AUTO) 28 % (12-44); MEAN CORPUSCULAR HEMOGLOBIN 33 pg (25-34); MEAN CORPUSCULAR HGB CONC 35 g/dL (32-36); MEAN CORPUSCULAR VOLUME 93 fL (80-99); MEAN PLATELET VOLUME 11.3 fL (9.0-12.2); MONOCYTES # (AUTO) 0.4 10^3/uL (0.0-1.0); MONOCYTES % (AUTO) 6 % (0-12); NEUTROPHILS % (AUTO) 61 % (42-75); PLATELET COUNT 171 10^3/uL (130-400); WHITE BLOOD COUNT 6.5 10^3/uL (4.3-11.0)
[2022-10-10 05:27] LABS: ALBUMIN 3.8 GM/DL (3.2-4.5); BILIRUBIN,TOTAL 1.9 MG/DL (0.1-1.0); CALCIUM 9.1 MG/DL (8.5-10.1); CREATININE SERUM 0.82 MG/DL (0.60-1.30); POTASSIUM 3.8 MMOL/L (3.6-5.0); TOTAL PROTEIN 6.3 GM/DL (6.4-8.2)
[2022-10-10] MEDS: MULTIVIT W/MINERALS TAB (THERAGRAN M) PO SCH (05:58)
[2022-10-10] MEDS: THIAMINE 100 MG (VITAMIN B-1) TAB PO SCH (05:58)
[2022-10-10] MEDS: LORazepam 1 MG (ATIVAN) TAB PO PRN ×3 (05:58→21:36)
[2022-10-10] MEDS: LACTATED RINGERS 1,000 ML IV SCH ×5 (08:00→23:29)
[2022-10-10] MEDS: THIAMINE INJECTION 100 MG, FOLIC ACID INJECTION 1 MG, MAGNESIUM SULFATE 2 GM, VITAMIN M... IV SCH ×5 (08:20)
[2022-10-10] MEDS: PANTOPRAZOLE 40 MG (PROTONIX) VIAL IV SCH ×2 (08:20→21:35)
[2022-10-10] MEDS: FOLIC ACID 1 MG TAB PO SCH (08:21)
[2022-10-10] MEDS: SENNOSIDES 8.6 MG (SENOKOT) TAB PO SCH ×2 (08:21→21:36)
[2022-10-10] MEDS: MAGNESIUM OXIDE (MAG-OX)400 MG TAB PO SCH ×2 (08:21→21:35)
[2022-10-10] MEDS: DOCUSATE SODIUM 100 MG CAPSULE PO SCH ×2 (08:21→21:36)
--- NOTE | 2022-10-10 08:43 | Tele-ICU Progress Note ---
Progress Note video rounds completed 22 y/o maled admittmanjit arriola hematemesis Has hs of heavy ETOH usage no further episodes of hematemesis PE: hemodynamically normal walking around ICU room Pulse 86 Hypertensive 171/109 Hgb: 14.1 from 17, may have been hydration related drop as creat went from 1.0 to 0.82 IMP: hematemesis alcohol use PLAN: follow H/H consider upper endoscopy I am reviewing this patient remotely and am unable to directly exam the patient. Review is based upon video, auditory and communication with nursing staff and review of medical records, labs and xrays Time spent in review 15 minutes Focused Exam Height, Weight, BMI Height: '" Weight: lbs. oz. kg; 35.36 BMI Method: Labs Laboratory Tests 10/09/22 09:10 10/10/22 04:34 Results Results/Procedures Lab Laboratory Tests 10/09/22 09:10 10/10/22 04:34 Results Labs Labs Laboratory Tests 10/09/22 09:10: White Blood Count 8.7, Red Blood Count 5.44, Hemoglobin 17.8H, Hematocrit 49, Mean Corpuscular Volume 91, Mean Corpuscular Hemoglobin 33, Mean Corpuscular Hemoglobin Concent 36, Red Cell Distribution Width 11.9, Platelet Count 226, Mean Platelet Volume 10.7, Immature Granulocyte % (Auto) 0, Neutrophils (%) (Auto) 60, Lymphocytes (%) (Auto) 32, Monocytes (%) (Auto) 6, Eosinophils (%) (Auto) 1, Basophils (%) (Auto) 1, Neutrophils # (Auto) 5.2, Lymphocytes # (Auto) 2.8, Monocytes # (Auto) 0.5, Eosinophils # (Auto) 0.1, Basophils # (Auto) 0.1, Immature Granulocyte # (Auto) 0.0, Prothrombin Time 11.8L, INR Comment 0.8, Activated Partial Thromboplast Time 25, Sodium Level 135, Potassium Level 3.2L, Chloride Level 96L, Carbon Dioxide Level 12L, Anion Gap 27H, Blood Urea Nitrogen 4L, Creatinine 1.00, Estimat Glomerular Filtration Rate 108, BUN/Creatinine Ratio 4, Glucose Level 172H, Calcium Level 10.1, Corrected Calcium 9.7, Magnesium Level 1.8, Total Bilirubin 1.3H, Aspartate Amino Transf (AST/SGOT) 576H, Alanine Aminotransferase (ALT/SGPT) 373H, Alkaline Phosphatase 112, Total Protein 8.1, Albumin 4.5, Lipase 39, Serum Alcohol 16H 10/09/22 09:58: Urine Color ORANGEH, Urine Clarity SL CLOUDY, Urine pH 5.5, Urine Specific [place] 1.030H, Urine Protein 3+H, Urine Glucose (UA) NEGATIVE, Urine Ketones NEGATIVE, Urine Nitrite NEGATIVE, Urine Bilirubin 1+H, Urine Urobilinogen 0.2, Urine Leukocyte Esterase NEGATIVE, Urine RBC (Auto) NEGATIVE, Urine RBC NONE, Urine WBC 2-5, Urine Squamous Epithelial Cells NONE, Urine Crystals PRESENTH, Urine Amorphous Sediment FEW SHERITA URATESH, Urine Bacteria NEGATIVE, Urine Casts PRESENT, Urine Hyaline Casts 25-50H, Urine Granular Casts 25-50H, Urine Mucus NEGATIVE, Urine Culture Indicated NO, Urine Opiates Screen NEGATIVE, Urine Oxycodone Screen NEGATIVE, Urine Methadone Screen NEGATIVE, Urine Propoxyphene Screen NEGATIVE, Urine Barbiturates Screen NEGATIVE, Ur Tricyclic Antidepressants Screen NEGATIVE, Urine Phencyclidine Screen NEGATIVE, Urine Amphetamines Screen NEGATIVE, Urine Methamphetamines Screen NEGATIVE, Urine Benzodiazepines Screen NEGATIVE, Urine Cocaine Screen NEGATIVE, Urine Cannabinoids Screen NEGATIVE 10/09/22 13:50: Glucometer 124H 10/09/22 18:32: Glucometer 152H 10/09/22 23:46: Glucometer 125H 10/10/22 04:34: White Blood Count 6.5, Red Blood Count 4.31, Hemoglobin 14.1#, Hematocrit 40, Mean Corpuscular Volume 93, Mean Corpuscular Hemoglobin 33, Mean Corpuscular Hemoglobin Concent 35, Red Cell Distribution Width 11.9, Platelet Count 171, Mean Platelet Volume 11.3, Immature Granulocyte % (Auto) 0, Neutrophils (%) (Auto) 61, Lymphocytes (%) (Auto) 28, Monocytes (%) (Auto) 6, Eosinophils (%) (Auto) 3, Basophils (%) (Auto) 1, Neutrophils # (Auto) 4.0, Lymphocytes # (Auto) 1.9, Monocytes # (Auto) 0.4, Eosinophils # (Auto) 0.2, Basophils # (Auto) 0.0, Immature Granulocyte # (Auto) 0.0, Sodium Level 138, Potassium Level 3.8, Chloride Level 104, Carbon Dioxide Level 24, Anion Gap 10, Blood Urea Nitrogen 3L, Creatinine 0.82, Estimat Glomerular Filtration Rate 127, BUN/Creatinine Ratio 4, Glucose Level 123H, Calcium Level 9.1, Corrected Calcium 9.3, Total Bilirubin 1.9H, Aspartate Amino Transf (AST/SGOT) 216H, Alanine Aminotransferase (ALT/SGPT) 259H, Alkaline Phosphatase 81, Total Protein 6.3L, Albumin 3.8 TASIA HARRIS MD Oct 10, 2022 08:43
[2022-10-10] MEDS ORDERED: hydrALAZINE INJECTION 20 MG/ML VIAL IV PRN (11:00)
--- NOTE | 2022-10-10 16:49 | Progress Note - Hospitalist ---
Subjective HPI/CC On Admission Date Seen by Provider: Oct 10, 2022 Time Seen by Provider: 10:50 Nathan Osman Jr is a 22 year old male who presented with vomiting. He had some streaks of blood in his emesis. He is a daily drinker for about the past two years. He drinks beer, hard liquor, or whatever he has. He drinks up to a fifth of liquor per day. He has had some mild withdrawal symptoms in the past. He denies any hospital admissions due to alcohol. He has no chronic medical problems. He wants help quitting drinking. Subjective/Events-last exam He is feeling better today. He was able to take a shower. He has ordered breakfast. He is not nauseous. Objective Exam Vital Signs Vital Signs Date Time Temp Pulse Resp B/P (MAP) Pulse Ox O2 Delivery O2 Flow Rate FiO2 10/10/22 16:00 36.4 84 17 156/93 (114) 97 Room Air Capillary Refill : Less Than 3 Seconds General Appearance: No Apparent Distress, Obese Respiratory: Lungs Clear, No Respiratory Distress Cardiovascular: Regular Rate, Rhythm, No Murmur Gastrointestinal: Normal Bowel Sounds, Soft Extremity: Normal Inspection, No Pedal Edema Skin: Normal Color, Warm/Dry Results/Procedures Lab Laboratory Tests 10/10/22 04:34 Patient resulted labs reviewed. Imaging: Reviewed Imaging Report Assessment/Plan Assessment and Plan Assess & Plan/Chief Complaint Alcohol dependence Alcohol withdrawal Acute alcoholic hepatitis [facility] protocol Ativan as needed, minimal requirement IV fluids Consult social work HTN Begin Metoprolol Diagnosis/Problems Diagnosis/Problems (1) Alcohol dependence Status: Acute Qualifiers: Substance use status: in withdrawal Complication of substance-induced condition: with unspecified complication Qualified Codes: F10.239 - Alcohol dependence with withdrawal, unspecified (2) Alcohol withdrawal Status: Acute Qualifiers: Complication of substance-induced condition: with unspecified complication Qualified Codes: F10.939 - Alcohol use, unspecified with withdrawal, unspecified (3) Acute alcoholic hepatitis Status: Acute (4) HTN (hypertension) Status: Acute MARLA HORNE MD Oct 10, 2022 16:49
[2022-10-11] MEDS: LORazepam INJ 2 MG/ML (ATIVAN) VIAL IV PRN ×2 (01:42→04:32)
[2022-10-11 05:08] LABS: BASOPHILS % (AUTO) 1 % (0-10); EOSINOPHILS # (AUTO) 0.3 10^3/uL (0.0-0.3); EOSINOPHILS % (AUTO) 3 % (0-10); HEMATOCRIT 45 % (40-54); HEMOGLOBIN 15.6 g/dL (13.3-17.7); LYMPHOCYTES # (AUTO) 1.6 10^3/uL (1.0-4.0); LYMPHOCYTES % (AUTO) 20 % (12-44); MEAN CORPUSCULAR HEMOGLOBIN 33 pg (25-34); MEAN CORPUSCULAR HGB CONC 35 g/dL (32-36); MEAN CORPUSCULAR VOLUME 94 fL (80-99); MEAN PLATELET VOLUME 11.6 fL (9.0-12.2); MONOCYTES # (AUTO) 0.4 10^3/uL (0.0-1.0); MONOCYTES % (AUTO) 5 % (0-12); NEUTROPHILS # (AUTO) 5.6 10^3/uL (1.8-7.8); NEUTROPHILS % (AUTO) 71 % (42-75); WHITE BLOOD COUNT 7.9 10^3/uL (4.3-11.0)
[2022-10-11 05:30] LABS: PLATELET COUNT 122 10^3/uL (130-400); SMEAR SCAN COMMENT YES
[2022-10-11 05:33] LABS: ALBUMIN 4.2 GM/DL (3.2-4.5); BILIRUBIN,TOTAL 1.4 MG/DL (0.1-1.0); CALCIUM 9.6 MG/DL (8.5-10.1); CREATININE SERUM 0.84 MG/DL (0.60-1.30); POTASSIUM 3.5 MMOL/L (3.6-5.0); TOTAL PROTEIN 7.1 GM/DL (6.4-8.2)
[2022-10-11] MEDS: LACTATED RINGERS 1,000 ML IV SCH (05:56)
[2022-10-11] MEDS: MULTIVIT W/MINERALS TAB (THERAGRAN M) PO SCH (05:56)
[2022-10-11] MEDS: THIAMINE 100 MG (VITAMIN B-1) TAB PO SCH (05:57)
[2022-10-11] MEDS: FOLIC ACID 1 MG TAB PO SCH (08:04)
[2022-10-11] MEDS: PANTOPRAZOLE 40 MG (PROTONIX) VIAL IV SCH (08:04)
[2022-10-11] MEDS: MAGNESIUM OXIDE (MAG-OX)400 MG TAB PO SCH (08:04)
[2022-10-11] MEDS: DOCUSATE SODIUM 100 MG CAPSULE PO SCH (08:05)
[2022-10-11] MEDS: SENNOSIDES 8.6 MG (SENOKOT) TAB PO SCH (08:05)
[2022-10-11] MEDS: THIAMINE INJECTION 100 MG, FOLIC ACID INJECTION 1 MG, MAGNESIUM SULFATE 2 GM, VITAMIN M... IV SCH ×5 (09:04)
[2022-10-11] MEDS ORDERED: POTASSIUM CHLORIDE 20 MEQ TABLET PO NR (10:30)
[2022-10-11 12:44] LABS: HEPATITIS C ANTIBODY C Non-Reactive (Non-Reactive)
[2022-10-11] MEDS ORDERED: METO50TA7 PO (14:03)
[2022-10-11] MEDS ORDERED: HYDR50TA76 PO (14:03)
--- NOTE | 2022-10-11 14:09 | Discharge Summary ---
Discharge Summary Hospital Course Problems/Dx: (1) Alcohol dependence Status: Acute Qualifiers: Qualified Codes: F10.239 - Alcohol dependence with withdrawal, unspecified (2) Alcohol withdrawal Status: Acute Qualifiers: Qualified Codes: F10.939 - Alcohol use, unspecified with withdrawal, unspecified (3) Acute alcoholic hepatitis Status: Acute (4) HTN (hypertension) Status: Acute Hospital Course Date of Admission: Oct 09, 2022 at 11:53 Admission Diagnosis : Alcohol dependence and withdrawal Family Physician/Provider: Nola Camejo Physician Date of Discharge: 10/11/22 Discharge Diagnosis: Alcohol dependence and withdrawal Hospital Course: Nathan Osman Jr is a 22 year old male who was admitted with alcohol withdrawal. He reports being an every day drinker for the past couple years. He wants to quit drinking. He was treated for alcohol withdrawal with the CIWA protocol and Ativan as needed. He also had an acute alcoholic hepatitis which improved. He also had newly diagnosed hypertension. He was started on Metoprolol. Social work was consulted and he was set up with an outpatient [facility] tomorrow for alcohol treatment. He was discharged home in stable condition. Labs and Pending Lab Test: Laboratory Tests 10/10/22 18:09: Glucometer 131H 10/11/22 04:45: White Blood Count 7.9, Red Blood Count 4.77, Hemoglobin 15.6, Hematocrit 45, Mean Corpuscular Volume 94, Mean Corpuscular Hemoglobin 33, Mean Corpuscular Hemoglobin Concent 35, Red Cell Distribution Width 12.0, Platelet Count 122L, Mean Platelet Volume 11.6, Immature Granulocyte % (Auto) 0, Neutrophils (%) (Auto) 71, Lymphocytes (%) (Auto) 20, Monocytes (%) (Auto) 5, Eosinophils (%) (Auto) 3, Basophils (%) (Auto) 1, Neutrophils # (Auto) 5.6, Lymphocytes # (Auto) 1.6, Monocytes # (Auto) 0.4, Eosinophils # (Auto) 0.3, Basophils # (Auto) 0.0, Immature Granulocyte # (Auto) 0.0, Percent Immature Platelet Fraction 11.0H, Sodium Level 140, Potassium Level 3.5L, Chloride Level 107, Carbon Dioxide Level 23, Anion Gap 10, Blood Urea Nitrogen 4L, Creatinine 0.84, Estimat Glomerular Filtration Rate 126, BUN/Creatinine Ratio 5, Glucose Level 112H, Calcium Level 9.6, Corrected Calcium 9.4, Total Bilirubin 1.4H, Aspartate Amino Transf (AST/SGOT) 185H, Alanine Aminotransferase (ALT/SGPT) 260H, Alkaline Phosphatase 84, Total Protein 7.1, Albumin 4.2, Smear Scan YES 10/11/22 06:14: Glucometer 111H Home Meds Active Hydroxyzine HCl 50 Mg Tablet 50 Mg PO TID PRN 7 Days Metoprolol Succinate 50 Mg Tab.er.24h 50 Mg PO DAILY 30 Days Assessment/Pt Instructions See instructions Discharge Planning: >30 minutes discharge planning Discharge Instructions Discharge Diet: Low Sodium Diet Activity as Tolerated: Yes Discharge Physical Examination Vital Signs Vital Signs Date Time Temp Pulse Resp B/P (MAP) Pulse Ox O2 Delivery O2 Flow Rate FiO2 10/11/22 13:00 114 10/11/22 11:58 36.3 16 159/112 (128) 93 Room Air General Appearance: No Apparent Distress, Obese Respiratory: Lungs Clear, No Respiratory Distress Cardiovascular: Regular Rate, Rhythm, No Murmur Gastrointestinal: Normal Bowel Sounds, Soft Extremity: Normal Inspection, No Pedal Edema Skin: Normal Color, Warm/Dry Neurologic/Psychiatric: Alert, No Motor/Sensory Deficits Allergies: Coded Allergies: No Known Drug Allergies (Unverified , 10/09/22) Discharge Summary Date of Admission Oct 09, 2022 at 11:53 Date of Discharge Discharge Date: Oct 11, 2022 Discharge Time: 14:06 Admission Diagnosis Alcohol withdrawal Discharge Diagnosis Alcohol dependence Alcohol withdrawal Acute alcoholic hepatitis HTN Obesity (1) Alcohol dependence Status: Acute Qualifiers: Qualified Codes: F10.239 - Alcohol dependence with withdrawal, unspecified (2) Alcohol withdrawal Status: Acute Qualifiers: Qualified Codes: F10.939 - Alcohol use, unspecified with withdrawal, unspecified (3) Acute alcoholic hepatitis Status: Acute (4) HTN (hypertension) Status: Acute MARLA HORNE MD Oct 11, 2022 14:09
== END 2022-10-11 14:55 | disposition home or self-care (01) | DRG 897 ==
LOC: EDUNIT# 08:54 → ER 08:56 → OBSVTOIN 11:53 → ICU 11:53 → CSD 10-10 09:07
PROVIDERS: ADMIT Internal Medicine; ATTEND Internal Medicine
DX: F10.239 Alcohol dependence with withdrawal, unspecified (principal); K92.0 Hematemesis; E87.20 Acidosis, unspecified; E72.51 Non-ketotic hyperglycinemia; K70.10 Alcoholic hepatitis without ascites; E87.6 Hypokalemia; E86.0 Dehydration; Y90.0 Blood alcohol level of less than 20 mg/100 ml; F17.290 Nicotine dependence, other tobacco product, uncomplicated; F41.9 Anxiety disorder, unspecified; F32.A Depression, unspecified; E86.1 Hypovolemia; E80.6 Other disorders of bilirubin metabolism; R00.0 Tachycardia, unspecified; I10 Essential (primary) hypertension; E66.9 Obesity, unspecified; Z68.34 Body mass index [BMI] 34.0-34.9, adult; Z79.899 Other long term (current) drug therapy
CPT/HCPCS: 36415; 80053; 80074; 80306; 80320; 81000; 82947; 83690; 83735; 85025; 85610; 85730; 93005; 93041; 96361; 96374; 96375; 96376